=== PATIENT | female | born 1990 | race African-American/Black ===

== ENCOUNTER 2016-11-09 11:51 | Emergency (ER) | payer SELFPAY ==
[~2016-11-09] VITALS: Ht 160 cm; Wt 87.0 kg
[~2016-11-09 11:51] MED LIST: AMOX500T PO; IBUP800T23 PO; MAGICADU2 SWISH-SPIT
[2016-11-09 11:52] VITALS: BP 128/94; PULSE 84; RESP 20; TEMP 98.2; O2SAT 100
[2016-11-09] MEDS ORDERED: ONCETAB7 (12:17)
[2016-11-09] MEDS ORDERED: AUGM875T3 PO (12:38)
--- NOTE | 2016-11-09 12:38 | PD ---
HPI Chief Complaint: Cold / Flu Symptoms Time Seen by Provider: 12:20 Travel History International Travel<30 days: No Contact w/Intl Traveler<30days: No Traveled to known affect area: No History of Present Illness HPI 26-year-old female presents emergency department for evaluation of right sided sinus pain 7 days. She reports nasal congestion and rhinitis. She denies fever or chills. Symptoms are unrelieved by [id number] cough and cold flu medications. Symptom severity mild. Duration constant. No alleviating factors. PFSH Past Medical History Medical History: Denies Significant Hx ?: Not LMP: 11/09/16 Social History Alcohol Use: No Tobacco Use: No Substance Use: No Allergies-Medications (Allergen,Severity, Reaction): Coded Allergies: No Known Allergies (Verified , 03/26/16) Reported Meds & Prescriptions Reported Meds & Active Scripts Active Reported Once Daily (Multivitamin) 1 Each Tablet Review of Systems Except as stated in HPI: all other systems reviewed are Neg General / Constitutional: No: Fever HENT: Positive: Rhinitis, Congestion Cardiovascular: No: Chest Pain or Discomfort Respiratory: No: Shortness of Breath Gastrointestinal: No: Abdominal Pain Genitourinary: No: Dysuria Physical Exam Narrative GENERAL: Well-nourished, well-developed patient. SKIN: Focused skin assessment warm/dry. HEAD: Normocephalic. EYES: No scleral icterus. No injection or drainage. Nasal congestion. Reported purulent drainage. Right maxillary/ethmoid sinus pain and pressure. Tender to palpation. NECK: Supple, trachea midline. No JVD or lymphadenopathy. CARDIOVASCULAR: Regular rate and rhythm without murmurs, gallops, or rubs. RESPIRATORY: Breath sounds equal bilaterally. No accessory muscle use. GASTROINTESTINAL: Abdomen soft, non-tender, nondistended. MUSCULOSKELETAL: No cyanosis, or edema. BACK: Nontender without obvious deformity. No CVA tenderness. Data Data Last Documented VS Vital Signs Date Time Temp Pulse Resp B/P Pulse Ox O2 Delivery O2 Flow Rate FiO2 11/09/16 12:18 18 97 Room Air 11/09/16 11:52 98.2 84 128/94 MDM Medical Decision Making Medical Screen Exam Complete: Yes Emergency Medical Condition: Yes Differential Diagnosis Sinusitis, URI, influenza Narrative Course 26-year-old female presents with chief complaint of nasal congestion and right- sided sinus pain 6 or 7 days. Symptom severity is mild. Patient does have tenderness over the right maxillary and ethmoid sinus. Patient will be treated for sinusitis and discharge him. Diagnosis Primary Impression: Sinusitis Qualified Code: J01.00 - Acute maxillary sinusitis, recurrence not specified Referrals: Primary Care Physician Additional Instructions: Take antibiotics as percent. Stay well hydrated recheck if unable is. Follow-up the primary care doctor. Scripts Amoxicillin-Clavulanate (Augmentin)875-125 Mg Tab1 Tab PO BID #20 TAB Prov:Becca Ramirez 11/09/16 Disposition: 01 DISCHARGE HOME Condition: Stable Becca Ramirez Nov 09, 2016 12:38
== END 2016-11-09 12:57 | disposition home or self-care (01) ==
LOC: NEPD 11:51
DX: J01.00 Acute maxillary sinusitis, unspecified (principal)
CPT/HCPCS: 99283

== ENCOUNTER 2017-04-16 10:49 | Emergency (ER) | payer SELFPAY ==
[~2017-04-16] VITALS: Ht 160 cm; Wt 83.0 kg
[~2017-04-16 10:49] MED LIST changes: -AMOX500T PO; +AUGM875T3 PO; -IBUP800T23 PO; -MAGICADU2 SWISH-SPIT; +ONCETAB7
[2017-04-16 10:54] VITALS: BP 139/89; PULSE 80; RESP 18; TEMP 98.6; O2SAT 100
[2017-04-16] MEDS ORDERED: SODIUM CHLOR 0.9% 1000 ML INJ 1,000 ML IV SCH (11:16)
--- NOTE | 2017-04-16 11:19 | PD ---
HPI Chief Complaint: GI Complaint Time Seen by Provider: 11:16 Travel History International Travel<30 days: No Contact w/Intl Traveler<30days: No Traveled to known affect area: No History of Present Illness HPI c/o lower abd pain, crampy, pressure like, /10, for last 4 days or so...denies any alleviating/aggravating factors...pt denies assoc sx of fever/n/v/d/cp/rm/ cough PFSH Past Medical History LMP: 04/09/17 Social History Alcohol Use: No Tobacco Use: No Substance Use: No Allergies-Medications (Allergen,Severity, Reaction): Coded Allergies: No Known Allergies (Verified Allergy, Unknown, 04/16/17) Reported Meds & Prescriptions Reported Meds & Active Scripts Active No Active Prescriptions or Reported Medications Review of Systems General / Constitutional: No: Fever Eyes: No: Visual changes HENT: No: Headaches Cardiovascular: No: Chest Pain or Discomfort Respiratory: No: Shortness of Breath Gastrointestinal: Positive: Abdominal Pain Genitourinary: No: Dysuria Musculoskeletal: No: Pain Skin: No Rash Neurologic: No: Weakness Psychiatric: No: Depression Endocrine: No: Polydipsia Hematologic/Lymphatic: No: Easy Bruising Physical Exam Narrative GENERAL: SKIN: Warm and dry. HEAD: Atraumatic. Normocephalic. EYES: Pupils equal and round. No scleral icterus. No injection or drainage. ENT: No nasal bleeding or discharge. Mucous membranes pink and moist. NECK: Trachea midline. No JVD. CARDIOVASCULAR: Regular rate and rhythm. RESPIRATORY: No accessory muscle use. Clear to auscultation. Breath sounds equal bilaterally. GASTROINTESTINAL: Abdomen soft, non-tender, nondistended. MUSCULOSKELETAL: Extremities without clubbing, cyanosis, or edema. No obvious deformities. NEUROLOGICAL: Awake and alert. No obvious cranial nerve deficits. Motor grossly within normal limits. Five out of 5 muscle strength in the arms and legs. Normal speech. PSYCHIATRIC: Appropriate mood and affect; insight and judgment normal. Data Data Last Documented VS Vital Signs Date Time Temp Pulse Resp B/P (MAP) Pulse Ox O2 Delivery O2 Flow Rate FiO2 04/16/17 11:33 16 98 Room Air 04/16/17 10:54 98.6 80 Orders Orders Complete Blood Count With Diff (04/16/17 11:16) Comprehensive Metabolic Panel (04/16/17 11:16) Lipase (04/16/17 11:16) Urinalysis - C+S If Indicated (04/16/17 11:16) Ct Abd/Pel W/O Iv Contrast (04/16/17 11:16) Iv Access Insert/Monitor (04/16/17 11:16) Ecg Monitoring (04/16/17 11:16) Oximetry (04/16/17 11:16) NPO (04/16/17 11:16) Morphine Inj (Morphine Inj) (04/16/17 11:30) Ondansetron Inj (Zofran Inj) (04/16/17 11:30) Sodium Chlor 0.9% 1000 Ml Inj (Ns 1000 M (04/16/17 11:16) Ed Urine Pregnancytest Poc (04/16/17 11:16) Morphine Inj (Morphine Inj) (04/16/17 11:30) Urine Culture (04/16/17 11:30) Labs Laboratory Tests Test 04/16/17 11:30 White Blood Count 15.1 TH/MM3 Red Blood Count 4.45 MIL/MM3 Hemoglobin 12.9 GM/DL Hematocrit 38.3 % Mean Corpuscular Volume 86.0 FL Mean Corpuscular Hemoglobin 29.0 PG Mean Corpuscular Hemoglobin Concent 33.7 % Red Cell Distribution Width 13.9 % Platelet Count 410 TH/MM3 Mean Platelet Volume 7.4 FL Neutrophils (%) (Auto) 69.1 % Lymphocytes (%) (Auto) 23.5 % Monocytes (%) (Auto) 4.3 % Eosinophils (%) (Auto) 2.7 % Basophils (%) (Auto) 0.4 % Neutrophils # (Auto) 10.4 TH/MM3 Lymphocytes # (Auto) 3.5 TH/MM3 Monocytes # (Auto) 0.6 TH/MM3 Eosinophils # (Auto) 0.4 TH/MM3 Basophils # (Auto) 0.1 TH/MM3 CBC Comment DIFF FINAL Differential Comment Urine Color YELLOW Urine Turbidity HAZY Urine pH 6.0 Urine Specific [place] 1.025 Urine Protein TRACE mg/dL Urine Glucose (UA) NEG mg/dL Urine Ketones NEG mg/dL Urine Occult Blood NEG Urine Nitrite NEG Urine Bilirubin NEG Urine Urobilinogen LESS THAN 2.0 MG/DL Urine Leukocyte Esterase LARGE Urine RBC 3 /hpf Urine WBC 5 /hpf Urine Squamous Epithelial Cells 16 /hpf Urine Amorphous Sediment RARE Urine Bacteria MOD /hpf Urine Mucus FEW /lpf Microscopic Urinalysis Comment CULTURE INDICATED Blood Urea Nitrogen 15 MG/DL Creatinine 0.69 MG/DL Random Glucose 88 MG/DL Total Protein 9.0 GM/DL Albumin 4.0 GM/DL Calcium Level 9.4 MG/DL Alkaline Phosphatase 120 U/L Aspartate Amino Transf (AST/SGOT) 12 U/L Alanine Aminotransferase (ALT/SGPT) 24 U/L Total Bilirubin 0.4 MG/DL Sodium Level 138 MEQ/L Potassium Level 3.8 MEQ/L Chloride Level 103 MEQ/L Carbon Dioxide Level 27.3 MEQ/L Anion Gap 8 MEQ/L Estimat Glomerular Filtration Rate 126 ML/MIN Lipase 51 U/L [facility] Medical Decision Making Medical Screen Exam Complete: Yes Emergency Medical Condition: Yes Medical Record Reviewed: Yes Differential Diagnosis preg related v uti v colitis v divertic Narrative Course NEG PREG, UA C/W UTI, CT NEG FOR COLITIS/DIVERTIC HOWEVER SOME MILD ENTERITIS EVIDENCE Diagnosis Primary Impression: UTI Additional Impression: GASTROENTERITIS Patient Instructions: Gastroenteritis (ED), General Instructions, Urinary Tract Infection in Women (ED) Scripts Nitrofurantoin Monohydrate Macrocrystals (Macrobid) 100 Mg Capsule 100 MG PO BID for Infection, #14 CAP 0 Refills Prov: Cali Henderson MD 04/16/17 Ondansetron Odt (Zofran Odt) 4 Mg Tab 4 MG SL Q6HR Y for Nausea/Vomiting, #20 TAB 0 Refills Prov: Cali Henderson MD 04/16/17 Disposition: 01 DISCHARGE HOME Condition: Stable Cali Henderson MD Apr 16, 2017 11:19
[2017-04-16] MEDS ORDERED: ONDANSETRON HCL 4 MG/2 ML VIAL IVP ONE (11:30)
[2017-04-16] MEDS ORDERED: MORPHINE SULFATE 4 MG/ML INJ IV PUSH ONE (11:30)
[2017-04-16] MEDS ORDERED: MORPHINE SULFATE 2 MG/ML INJ IV ONE (11:30)
[2017-04-16 11:33] VITALS: RESP 16; O2SAT 98
[2017-04-16 11:50] LABS: AUTOMATED NEUTROPHIL # 10.4 TH/MM3 (1.8-7.7); BASOPHIL # 0.1 TH/MM3 (0-0.2); BASOPHIL % 0.4 % (0.0-2.0); EOSINOPHIL # 0.4 TH/MM3 (0-0.4); EOSINOPHIL % 2.7 % (0.0-4.0); HEMATOCRIT 38.3 % (35.0-46.0); HEMOGLOBIN 12.9 GM/DL (11.6-15.3); LYMPH % 23.5 % (9.0-44.0); LYMPHOCYTE # 3.5 TH/MM3 (1.0-4.8); MEAN CORPUSCULAR HGB CONC 33.7 % (32.0-36.0); MEAN PLATELET VOLUME 7.4 FL (7.0-11.0); MONO % 4.3 % (0.0-8.0); MONOCYTE # 0.6 TH/MM3 (0-0.9); NEUT % 69.1 % (16.0-70.0); PLATELET COUNT 410 TH/MM3 (150-450); RED BLOOD COUNT 4.45 MIL/MM3 (4.00-5.30); RED CELL DISTRIBUTION WIDTH 13.9 % (11.6-17.2); WHITE BLOOD COUNT 15.1 TH/MM3 (4.0-11.0)
[2017-04-16 11:59] LABS: AMORPHOUS SEDIMENT, URINE RARE; BACTERIA, URINE MOD /hpf; BILIRUBIN, URINE NEG (NEG); BLOOD, URINE NEG (NEG); GLUCOSE,URINE NEG (NEG); KETONE, URINE NEG (NEG); MUCUS URINE FEW /lpf (OCC); NITRITE,URINE NEG (NEG); SQUAMOUS EPITHELIAL CELL URINE 16 /hpf (0-5); URINE COLOR YELLOW (YELLW/STRAW); URINE LEUKOCYTE ESTERASE LARGE (NEG)
[2017-04-16 12:12] LABS: ALT (GPT) 24 U/L (10-53); AST (GOT) 12 U/L (15-37); BICARBONATE 27.3 MEQ/L (21.0-32.0); BLOOD UREA NITROGEN 15 MG/DL (7-18); CALCIUM 9.4 MG/DL (8.5-10.1); CHLORIDE 103 MEQ/L (98-107); CREATININE 0.69 MG/DL (0.50-1.00); GLOMERULAR FILTRATION RATE 126 ML/MIN (>89); GLUCOSE,RANDOM 88 MG/DL (74-106); LIPASE 51 U/L (73-393); SODIUM (NA) 138 MEQ/L (136-145)
[2017-04-16 12:14] LABS: ALKALINE PHOSPHATASE 120 U/L (45-117); TOTAL BILIRUBIN ADULT 0.4 MG/DL (0.2-1.0)
--- NOTE | 2017-04-16 12:54 | RADRPT ---
EXAM DATE/TIME: 04/16/2017 12:26 [place] COMPARISON: No previous studies available for comparison. INDICATIONS : Intermittent sharp bilateral lower abdomen pain. ORAL CONTRAST: No oral contrast ingested. RADIATION DOSE: 8.22 CTDIvol (mGy) MEDICAL HISTORY : None SURGICAL HISTORY : None. ENCOUNTER: Initial ACUITY: 4 - 6 days PAIN SCALE: 3/10 LOCATION: Abdomen TECHNIQUE: Volumetric scanning of the abdomen and pelvis was performed. Using automated exposure control and ad justment of the mA and/or kV according to patient size, radiation dose was kept as low as reasonably achievable to obtain optimal diagnostic quality images. DICOM format image data is available electro nically for review and comparison. FINDINGS: LOWER LUNGS: The visualized lower lungs are clear. LIVER: Homogeneous density without lesion. There is no dilation of the biliary tree. No calcified gallston es. SPLEEN: Normal size without lesion. PANCREAS: Within normal limits. KIDNEYS: Normal in size and shape. There is no mass, stone, or hydronephrosis. ADRENAL GLANDS: Within normal limits. VASCULAR: There is no aortic aneurysm. BOWEL/MESENTERY: Mild small bowel ileus in the upper abdomen. ABDOMINAL WALL: Within normal limits. RETROPERITONEUM: There is no lymphadenopathy. BLADDER: No wall thickening or mass. REPRODUCTIVE: Within normal limits. INGUINAL: There is no lymphadenopathy or hernia. MUSCULOSKELETAL: Within normal limits for patient age. CONCLUSION: 1. Mild small bowel ileus in the upper abdomen. Otherwise no acute findings. Chaparro Amin MD on April 16, 2017 at 12:49 Board Certified Radiologist. This report was verified electronically.
[2017-04-16] MEDS ORDERED: MACR100C2 PO (13:39)
[2017-04-16] MEDS ORDERED: ZOFR4TAB3 SL (13:39)
== END 2017-04-16 14:05 | disposition home or self-care (01) ==
LOC: NEPD 10:49
DX: N39.0 Urinary tract infection, site not specified (principal); K52.9 Noninfective gastroenteritis and colitis, unspecified; B96.20 Unspecified Escherichia coli [E. coli] as the cause of diseases classified elsewhere
CPT/HCPCS: 74176; 80053; 81001; 83690; 84703; 85025; 87077; 87086; 87186; 96361; 96374; 96375; 99285; J2270; J2405; J7030